=== PATIENT | female | born 1975 | race African-American/Black ===

== ENCOUNTER 2017-04-21 14:29 | Emergency (ER) | payer OTHER ==
[2017-04-21 14:33] VITALS: BP 154/90; PULSE 81; TEMP 98.6; BMI 32.5
[2017-04-21] MEDS ORDERED: IBUPROFEN 400 MG TABLET (FP) PO ONE ×2 (14:49→14:50)
--- NOTE | 2017-04-21 15:04 | PDOC ---
History of Present Illness - General Chief Complaint: Injury Stated Complaint: FALL Time Seen by Provider: 04/21/17 14:43 History Source: Patient - History of Present Illness Occurred: reports: just prior to arrival Lower Extremity Pain Location: left: ankle Method of Injury: Yes: twisted Past History - Past Medical History Allergies/Adverse Reactions: Allergies Allergy/AdvReac Type Severity Reaction Status Date / Time No Known Allergies Allergy Verified 04/21/17 14:31 Home Medications: Ambulatory Orders NK [No Known Home Medication] 04/25/15 Other medical history: denies - Surgical History Abdominal Surgery: Yes (abd abscess) - Immunization History Immunization Up to Date: Yes - Psycho/Social/Smoking Cessation Hx Anxiety: No Suicidal Ideation: No Smoking History: Never smoked Have you smoked in the past 12 months: No Number of Cigarettes Smoked Daily: 0 Information on smoking cessation initiated: No Hx Alcohol Use: No Drug/Substance Use Hx: No Substance Use Type: None Review of Systems - Review of Systems Musculoskeletal: Yes: Joint Pain, Joint Swelling *Physical Exam - Vital Signs Last Vital Signs Temp Pulse Resp BP Pulse Ox 98.6 F 81 18 154/90 99 04/21/17 14:31 04/21/17 14:31 04/21/17 14:31 04/21/17 14:31 04/21/17 14:31 - Physical Exam General Appearance: Yes: Appropriately Dressed. No: Apparent Distress HEENT: positive: Normal Voice Neck: positive: Supple Respiratory/Chest: negative: Respiratory Distress Extremity: positive: Tender (to lateral malleolus of L ankle), Swelling ED Treatment Course - RADIOLOGY Radiology Studies Ordered: Category Date Time Status ANKLE & FOOT-LEFT* [RAD] Stat Radiology 04/21/17 14:49 Ordered - Medications Given in the ED: ED Medications Discontinued Medications Generic Name Dose Route Start Last Admin Trade Name Freq PRN Reason Stop Dose Admin Ibuprofen 800 mg 04/21/17 14:49 04/21/17 14:52 Motrin - PO 04/21/17 14:50 800 mg ONCE ONE Administration Medical Decision Making - Medical Decision Making 04/21/17 14:53 41 yo F, no significant history here with left ankle pain and swelling status post fall. Patient states she twisted left ankle after missing a few steps today. Has not been able to bear weight since. Also complaining of abrasions to left elbow, otherwise no other injuries and did not hit head See exam R/o ankle fx -XR -pain control 04/21/17 15:05 04/21/17 15:11 XR neg for fx. Deo place and cane given. Ortho referral as needed 04/21/17 15:15 *DC/Admit/Observation/Transfer Diagnosis at time of Disposition: Ankle sprain - Discharge Dispostion Disposition: HOME Condition at time of disposition: Good - Referrals Referrals: Pankaj Bennett MD [Primary Care Provider] - Fred Rene MD [Staff Physician] - - Patient Instructions Printed Discharge Instructions: DI for Ankle Sprain Additional Instructions: Take motrin for pain, rest, elevate and ice ankle. Follow up with orthopedic if you continue to have symptoms after 2 weeks - Post Discharge Activity Work/School Note: Back to Work
== END 2017-04-21 15:23 | disposition home or self-care (01) ==
LOC: JERFT 14:29
DX: S93.402A Sprain of unspecified ligament of left ankle, initial encounter (principal); S50.312A Abrasion of left elbow, initial encounter; W10.8XXA Fall (on) (from) other stairs and steps, initial encounter; Y93.89 Activity, other specified; Y92.89 Other specified places as the place of occurrence of the external cause
CPT/HCPCS: 73610-TC-LT; 73630-TC-LT; 99281-25

== ENCOUNTER 2018-02-03 11:23 | Emergency (ER) | payer OTHER ==
[2018-02-03 11:42] VITALS: BP 119/88; PULSE 79; TEMP 98.2; BMI 32.4
--- NOTE | 2018-02-03 12:43 | PDOC ---
History of Present Illness - General Chief Complaint: Cold Symptoms Stated Complaint: THROAT PAIN Time Seen by Provider: 02/03/18 12:11 History Source: Patient Exam Limitations: No Limitations - History of Present Illness Initial Comments: CHIEF COMPLAINT: 42 y/o afebrile female c/o allergy symptoms x 6 days. HISTORY OF PRESENT ILLNESS: Patient states she has dry cough, runny nose, stuffy nose and sore throat x 6 days. She has been gargling with salt water but hasn't taken anything else. She denies fever, earache, n/v/d, CP, SOB, abd pain, and all other symptoms. Her son has similar symptoms. Vital signs on arrival are within normal limits. REVIEW OF SYSTEMS: GENERAL/CONSTITUTIONAL: No fever or chills HEAD, EYES, EARS, NOSE AND THROAT: +runny nose +stuffy nose + sore throat. No earache. LUNGS: +dry cough. No wheezing SKIN: No rash or easy bruising. NEUROLOGIC: No headache, vertigo, loss of consciousness, or loss of sensation. PHYSICAL EXAM: GENERAL: The patient is awake, alert, and appropriately interactive. SHe is well appearing and pleasant. EYES: The pupils are equal, round, and reactive to light, with clear, conjunctiva. NOSE: The nose is congested. Inflammed nasal turbinates. EARS: The ear canals and tympanic membranes are normal. THROAT: The oropharynx has some posterior pharyngeal erythema without tonsilar exudate. Uvula midline. No soft/hard palate deformities. The mucous membranes are moist. NECK: The neck is supple without adenopathy or meningismus. EXTREMITIES: Extremities are normal. SKIN: Skin is unremarkable without rash or swelling. There is no bruising, and there are no other signs of injury. Past History - Past Medical History Allergies/Adverse Reactions: Allergies Allergy/AdvReac Type Severity Reaction Status Date / Time No Known Allergies Allergy Verified 02/03/18 11:39 Home Medications: Ambulatory Orders Fluticasone Propionate [Flonase Allergy Relief] 1 - 2 sprays NS BID #1 bottle Anemia: No Asthma: No Cancer: No Cardiac Disorders: No CVA: No COPD: No CHF: No DVT: No Dementia: No Diabetes: No GI Disorders: No Disorders: No HTN: Yes (DURING ) Hypercholesterolemia: No Liver Disease: No Seizures: No Thyroid Disease: No - Surgical History Abdominal Surgery: Yes (ABDOMINAL ABSCESS) Appendectomy: No Cardiac Surgery: No Cholecystectomy: No Lung Surgery: No Neurologic Surgery: No Orthopedic Surgery: No - Immunization History Immunization Up to Date: Yes - Suicide/Smoking/Psychosocial Hx Smoking History: Never smoked Have you smoked in the past 12 months: No Number of Cigarettes Smoked Daily: 0 Information on smoking cessation initiated: No Hx Alcohol Use: No Drug/Substance Use Hx: No Substance Use Type: None *Physical Exam - Vital Signs Last Vital Signs Temp Pulse Resp BP Pulse Ox 98.2 F 79 18 119/88 100 02/03/18 11:39 02/03/18 11:39 02/03/18 11:39 02/03/18 11:39 02/03/18 11:39 Medical Decision Making - Medical Decision Making A/P: 42 y/o female with seasonal allergies. Plan is to discharge to home with rx for flonase. Suggested daily otc allergy medication, plenty of fluids and f/ u with PCP. Pt instructed to return to the ER with any worsening or concerning symptoms. The patient verbalizes understanding of all instructions, has no further questions and is awaiting discharge. *DC/Admit/Observation/Transfer Diagnosis at time of Disposition: Seasonal allergies Allergic rhinitis Qualifiers: Allergic rhinitis trigger: unspecified Allergic rhinitis seasonality: seasonal Qualified Code(s): J30.2 - Other seasonal allergic rhinitis - Discharge Dispostion Disposition: HOME Condition at time of disposition: Good - Referrals Referrals: Pankaj Bennett MD [Primary Care Provider] - 1 week - Patient Instructions Printed Discharge Instructions: Allergies (Alternative Therapy), DI for Allergic Rhinitis Additional Instructions: Discharge Instructions: -You have seasonal allergies -Take daily over the counter Claritin, zyrtec OR tee -A prescription for nasal spray has been sent to your pharmacy; use as directed -Follow up with Dr. Bennett within 1 week -Return to the ER with any worsening or concerning symptoms - Post Discharge Activity Forms/Work/School Notes: Back to Work
== END 2018-02-03 12:58 | disposition home or self-care (01) ==
LOC: JERFT 11:23
DX: J30.2 Other seasonal allergic rhinitis (principal)
CPT/HCPCS: 99281-25

== ENCOUNTER 2018-05-28 17:05 | Emergency (ER) | payer OTHER ==
[2018-05-28 17:15] VITALS: BP 131/78; PULSE 84; TEMP 98.7; BMI 33.6
--- NOTE | 2018-05-28 17:48 | PDOC ---
History of Present Illness - General Chief Complaint: Rash Stated Complaint: RASH Time Seen by Provider: 05/28/18 17:46 History Source: Patient - History of Present Illness Initial Comments: 05/28/18 18:17 Chief complaint: ALLERGIC reaction Patient 42-year-old female with no significant medical history who states that she's had diffuse skin itching on and off for one week. She tried Benadryl several times but itching return. No fever, shortness of breath, throat tightening or specific precipitating item or event. no History of same. GENERAL/CONSTITUTIONAL: No fever, weakness. dizziness HEAD, EYES, EARS, NOSE AND THROAT: No change in vision. No ear pain or discharge. No sore throat. CARDIOVASCULAR: No chest pain RESPIRATORY: No shortness of breath or cough GASTROINTESTINAL: No pain, nausea, vomiting, diarrhea or constipation GENITOURINARY: No dysuria MUSCULOSKELETAL: No neck or back pain SKIN: +rash, + itching NEUROLOGIC: No headache, vertigo, loss of consciousness, or loss of sensation. GENERAL: The patient is awake, alert, and fully oriented, in no acute distress. HEAD: Normal with no signs of trauma. EYES: Pupils equal, round and reactive to light, sclera anicteric, conjunctiva clear. ENT: pharynx: no erythema, no exudate, uvula midline NECK: supple CHEST: clear, nontender, rr ABD: soft, nontender EXTREMITIES: Normal range of motion, no edema. NEUROLOGICAL: Normal speech, normal gait. SKIN: Warm, Dry, diffuse pruritic rash, no redness except for slightly on the face, no herald patch, no vesicles or signs of infection Past History - Past Medical History Allergies/Adverse Reactions: Allergies Allergy/AdvReac Type Severity Reaction Status Date / Time No Known Allergies Allergy Verified 05/28/18 17:12 Home Medications: Ambulatory Orders predniSONE [Deltasone -] 40 mg PO DAILY #10 tablet 05/28/18 Anemia: No Asthma: No Cancer: No Cardiac Disorders: No CVA: No COPD: No CHF: No DVT: No Dementia: No Diabetes: No GI Disorders: No Disorders: No HTN: Yes (DURING ) Hypercholesterolemia: No Liver Disease: No Seizures: No Thyroid Disease: No - Surgical History Abdominal Surgery: Yes (ABDOMINAL ABSCESS) Appendectomy: No Cardiac Surgery: No Cholecystectomy: No Lung Surgery: No Neurologic Surgery: No Orthopedic Surgery: No - Immunization History Immunization Up to Date: Yes - Suicide/Smoking/Psychosocial Hx Smoking History: Never smoked Have you smoked in the past 12 months: No Number of Cigarettes Smoked Daily: 0 Information on smoking cessation initiated: No Hx Alcohol Use: No Drug/Substance Use Hx: No Substance Use Type: None *Physical Exam - Vital Signs Last Vital Signs Temp Pulse Resp BP Pulse Ox 98.7 F 84 18 131/78 100 05/28/18 17:12 05/28/18 17:12 05/28/18 17:12 05/28/18 17:12 05/28/18 17:12 Medical Decision Making - Medical Decision Making 05/28/18 18:20 Patient with pruritic rash for 1 week, no respiratory issues, patient states it did start getting better after Benadryl but returned. Only thing patient knows is that she recently started new control. Patient does not appear ill and symptoms are very nonspecific, consistent with ALLERGIC reaction. Patient will take Pepcid, Benadryl and prednisone, and will follow-up if not resolved *DC/Admit/Observation/Transfer Diagnosis at time of Disposition: Allergic reaction Qualifiers: Encounter type: initial encounter Qualified Code(s): T78.40XA - Allergy, unspecified, initial encounter - Discharge Dispostion Disposition: HOME Condition at time of disposition: Stable Decision to Admit order: No - Prescriptions Prescriptions: predniSONE [Deltasone -] 40 mg PO DAILY #10 tablet - Referrals Referrals: Pankaj Bennett MD [Primary Care Provider] - - Patient Instructions Printed Discharge Instructions: Anaphylaxis Additional Instructions: take benadryl 25-50 mg every 4 hours for itching take prednisone 40 mg once daily for anther 4 days, start tomorrow take pepcid 20 mg once daily which will help with the reaction and protect your stomach for any upset from the prednisone return to the er if short of breath, difficulty breathing, or getting worse. otherwise follow up with your doctor in 2-3 days - Post Discharge Activity
== END 2018-05-28 18:27 | disposition home or self-care (01) ==
LOC: JERFT 17:05
DX: T78.40XA Allergy, unspecified, initial encounter (principal)
CPT/HCPCS: 99281-25

== ENCOUNTER 2018-07-05 15:09 | Emergency (ER) | payer OTHER ==
[2018-07-05 15:16] VITALS: BP 119/75; PULSE 76; TEMP 98; BMI 34.7
--- NOTE | 2018-07-05 15:16 | PDOC ---
Rapid Medical Evaluation Chief Complaint: Rash Time Seen by Provider: 07/05/18 15:13 Medical Evaluation: Allergies Allergy/AdvReac Type Severity Reaction Status Date / Time No Known Allergies Allergy Verified 05/28/18 17:12 07/05/18 15:14 I have performed a brief in person evaluation of the patient. The patient presents with a CC of: Rash PE: Skin: No visible rash Lungs: Clear Heart:RRR MS: Moves all extremities without difficulty Neuro: Alert and oriented Psych: Approrpriate affect I have ordered the following: nothing at this time. The patient will proceed to the [facility] for further evaluation. Discharge Disposition - Diagnosis Rash - Referrals Referrals: Pankaj Bennett MD [Primary Care Provider] - - Patient Instructions - Post Discharge Activity
--- NOTE | 2018-07-05 15:50 | PDOC ---
History of Present Illness - General Chief Complaint: Rash Stated Complaint: RASH Time Seen by Provider: 07/05/18 15:13 - History of Present Illness Initial Comments: 07/05/18 15:49 42-year-old female without comorbidities presents for evaluation of a rash times about 3 days without systemic symptoms Past History - Past Medical History Allergies/Adverse Reactions: Allergies Allergy/AdvReac Type Severity Reaction Status Date / Time No Known Allergies Allergy Verified 07/05/18 15:16 Home Medications: Ambulatory Orders NK [No Known Home Medication] 07/05/18 Anemia: No Asthma: No Cancer: No Cardiac Disorders: No CVA: No COPD: No CHF: No DVT: No Dementia: No Diabetes: No GI Disorders: No Disorders: No HTN: Yes (DURING ) Hypercholesterolemia: No Liver Disease: No Seizures: No Thyroid Disease: No - Surgical History Abdominal Surgery: Yes (ABDOMINAL ABSCESS) Appendectomy: No Cardiac Surgery: No Cholecystectomy: No Lung Surgery: No Neurologic Surgery: No Orthopedic Surgery: No - Immunization History Immunization Up to Date: Yes - Suicide/Smoking/Psychosocial Hx Smoking History: Never smoked Have you smoked in the past 12 months: No Number of Cigarettes Smoked Daily: 0 Hx Alcohol Use: No Drug/Substance Use Hx: No Substance Use Type: None Review of Systems - Review of Systems Constitutional: No: Fever Integumentary: Yes: Pruritus, Rash *Physical Exam - Vital Signs Last Vital Signs Temp Pulse Resp BP Pulse Ox 98 F 76 18 119/75 100 07/05/18 15:13 07/05/18 15:13 07/05/18 15:13 07/05/18 15:13 07/05/18 15:13 - Physical Exam Comments: 07/05/18 15:49 HEAD: NC/AT EYES: Conjuntiva clear MS: Full ROM in all joints without edema NEUROLOGIC: No gross sensory or motor deficits, NVID SKIN: Normal color and temperature are vesicular lesions on the upper back and left arm closed without indication of secondary infection In groups 3 *DC/Admit/Observation/Transfer Diagnosis at time of Disposition: Rash, Bed bug bite - Discharge Dispostion Disposition: HOME Condition at time of disposition: Stable Decision to Admit order: No - Referrals Referrals: Pankaj Bennett MD [Primary Care Provider] - - Patient Instructions Printed Discharge Instructions: How to Get Rid of Bed Bugs, DI for Bed Bug Bites Additional Instructions: Follow-up with your primary care physician once 2 days for further evaluation and treatment options and return to the emergency room should symptoms worsen or go unresolved. Benadryl as directed for itching - Post Discharge Activity
== END 2018-07-05 15:53 | disposition home or self-care (01) ==
LOC: JERFT 15:09
DX: S20.469A Insect bite (nonvenomous) of unspecified back wall of thorax, initial encounter (principal); S40.862A Insect bite (nonvenomous) of left upper arm, initial encounter; W57.XXXA Bitten or stung by nonvenomous insect and other nonvenomous arthropods, initial encounter; Y93.89 Activity, other specified; Y92.032 Bedroom in apartment as the place of occurrence of the external cause; Y99.8 Other external cause status
CPT/HCPCS: 99281-25

== ENCOUNTER 2020-07-30 13:28 | Emergency (ER) | payer OTHER ==
[2020-07-30 13:47] VITALS: BP 109/76; PULSE 87; TEMP 97.9; BMI 34.2
[2020-07-30] MEDS ORDERED: IBUPROFEN 600 MG TABLET (FP) PO ONE ×2 (14:20→14:23)
== END 2020-07-30 15:20 | disposition home or self-care (01) ==
LOC: JERFT 13:28
DX: M79.10 Myalgia, unspecified site (principal)
CPT/HCPCS: 73060-TC-RT-FY; 73562-TC-LT-FY; 99284-25

== ENCOUNTER → 2023-08-03 | Day surgery (SDC) | payer OTHER | END | disposition home or self-care (01) | LOC: FMAMMOTONE 12:46 | PROVIDERS: ATTEND Internal Medicine | PROC: 0HBU3ZX Excision of Left Breast, Percutaneous Approach, Diagnostic (ICD-10-PCS; principal; 2023-08-03) | DX: N60.12 Diffuse cystic mastopathy of left breast (principal); N64.89 Other specified disorders of breast; R92.0 Mammographic microcalcification found on diagnostic imaging of breast | CPT/HCPCS: 19081; 76098-TC-FY; 87899; 88305-TC; A4648 ==